=== PATIENT | female | born 1945 | race Caucasian/White ===

== ENCOUNTER 2020-12-19 09:51 | Emergency (ER) | payer MEDICARE, OTHER ==
[~2020-12-19] VITALS: Ht 160 cm; Wt 71.2 kg
[2020-12-19] MEDS ORDERED: LASIX20 MG PO (10:28)
[2020-12-19 10:30] LABS: BASOPHIL 1.1 % (0-2); EOSINOPHIL 12.9 % (0-7); HCT 37.1 % (37.0-47.0); HGB 11.7 g/dl (12.5-16.0); LYMPHOCYTE 25.1 % (15-48); MCH 29.4 pg (25.0-31.0); MCHC 31.5 g/dL (32.0-36.0); MCV 93.2 fL (78.0-100.0); MONOCYTE 8.5 % (0-12); MPV 10.5 fL (6.0-9.5); NEUTROPHIL 52.1 % (41-80); NRBC 0; PLT 327 K/uL (150-400); RBC 3.98 M/uL (4.20-5.40); RDW 12.7 % (11.5-14.0); WBC 6.6 K/uL (4.0-10.5)
[2020-12-19 10:47] LABS: INR 0.99 (0.9-1.2); PROTHROMBIN TIME 12.5 SECONDS (11.8-13.4); PTT 33.2 SECONDS (24.4-34.7)
[2020-12-19 10:53] LABS: BILIRUBIN NEGATIVE (NEGATIVE); BLOOD NEGATIVE Ery/uL (NEGATIVE); CLARITY CLEAR (CLEAR); COLOR YELLOW (YELLOW); GLUCOSE (U) NORMAL (NORMAL); LEUKOCYTES 1+ Leu/uL (NEGATIVE); NITRITE NEGATIVE (NEGATIVE); PROTEIN NEGATIVE (NEGATIVE); SPECIFIC GRAVITY 1.025 (1.001-1.030); UROBILINOGEN 0.2 mg/dL (0.2-1.0)
[2020-12-19 10:58] LABS: ALBUMIN 3.2 g/dL (3.4-5.0); BILIRUBIN - TOTAL 0.1 mg/dL (0.2-1.0); BUN/CREAT RATIO (CALC) 21.6 RATIO; CREATININE 1.02 mg/dL (0.51-0.95); GLOBULIN (CALCULATION) 3.9 g/dL; POTASSIUM 4.4 mmol/L (3.5-5.1); TOTAL PROTEIN 7.1 g/dL (6.4-8.2)
[2020-12-19 11:03] LABS: PRO-BNP 300 pg/mL (<125)
[2020-12-19 11:03] LABS: BACTERIA 3+; MUCOUS TRACE; URINARY RBC RARE
[2020-12-19] MEDS ORDERED: KLOR-CON M20 T20 MEQ PO (12:41)
[2020-12-19] MEDS ORDERED: LASIX40 MG PO (12:41)
[2020-12-19] MEDS ORDERED: COMPRESSION TH1 EACH XX (12:42)
== END 2020-12-19 13:44 | disposition home or self-care (01) ==
LOC: FER 09:51
PROVIDERS: Emergency Medicine
DX: I11.0 Hypertensive heart disease with heart failure (principal); I50.9 Heart failure, unspecified; M79.89 Other specified soft tissue disorders; I25.2 Old myocardial infarction
CPT/HCPCS: 36415; 71045; 80053; 81001; 83880; 84484; 85025; 85610; 85730; 93005; J1940

== ENCOUNTER 2021-08-19 09:38 | Inpatient (IN) | payer MEDICARE, OTHER ==
[~2021-08-19] VITALS: Ht 160 cm; Wt 81.0 kg
[~2021-08-19 09:38] MED LIST: COMPRESSION TH1 EACH XX; KLOR-CON M20 T20 MEQ PO; LASIX20 MG PO; LASIX40 MG PO
[2021-08-19 11:12] LABS: BASOPHIL 0.6 % (0-2); EOSINOPHIL 1.9 % (0-7); HCT 38.7 % (37.0-47.0); HGB 12.3 g/dl (12.5-16.0); LYMPHOCYTE 7.4 % (15-48); MCH 29.2 pg (25.0-31.0); MCHC 31.8 g/dL (32.0-36.0); MCV 91.9 fL (78.0-100.0); MPV 10.6 fL (6.0-9.5); NEUTROPHIL 83.7 % (41-80); NRBC 0; PLT 351 K/uL (150-400); RBC 4.21 M/uL (4.20-5.40); WBC 11.2 K/uL (4.0-10.5)
[2021-08-19 11:37] LABS: BILIRUBIN NEGATIVE (NEGATIVE); BLOOD TRACE-INTACT Ery/uL (NEGATIVE); CLARITY CLEAR (CLEAR); COLOR YELLOW (YELLOW); GLUCOSE (U) NORMAL (NORMAL); LEUKOCYTES NEGATIVE Leu/uL (NEGATIVE); NITRITE NEGATIVE (NEGATIVE); PROTEIN TRACE (LOW) mg/dL (NEGATIVE); UROBILINOGEN 0.2 mg/dL (0.2-1.0)
[2021-08-19 11:50] LABS: BACTERIA TRACE; MUCOUS TRACE
[2021-08-19 12:08] LABS: ALBUMIN 3.8 g/dL (3.4-5.0); BILIRUBIN - TOTAL 0.5 mg/dL (0.2-1.0); BUN/CREAT RATIO (CALC) 26.5 RATIO; CREATININE 1.47 mg/dL (0.51-0.95); GLOBULIN (CALCULATION) 3.1 g/dL; POTASSIUM 4.9 mmol/L (3.5-5.1); TOTAL PROTEIN 6.9 g/dL (6.4-8.2)
[2021-08-19] MEDS ORDERED: UROCIT-K10 MEQ PO (16:14)
[2021-08-19] MEDS ORDERED: LIPITOR40 MG PO (16:14)
[2021-08-19] MEDS ORDERED: LASIX40 MG PO (16:14)
[2021-08-19] MEDS ORDERED: NAMZARIC 21 MG1 EACH PO (16:15)
[2021-08-19] MEDS ORDERED: TRELEGY ELLIPT1 EACH PO (16:16)
[2021-08-19] MEDS ORDERED: SYNTHROID125 MCG PO (16:18)
[2021-08-19] MEDS ORDERED: ZOLOFT100 MG PO (16:18)
[2021-08-19] MEDS ORDERED: PLAVIX75 MG PO (16:18)
[2021-08-19] MEDS ORDERED: DIOVAN80 MG PO (16:19)
[2021-08-19] MEDS ORDERED: ASPIRIN EC81 MG PO (16:19)
[2021-08-19] MEDS ORDERED: MULTI-VITAMIN1 EACH PO (16:20)
[2021-08-20 06:34] LABS: EOSINOPHIL 10.7 % (0-7); HCT 33.6 % (37.0-47.0); HGB 10.5 g/dl (12.5-16.0); LYMPHOCYTE 17.3 % (15-48); MCH 29.2 pg (25.0-31.0); MCHC 31.3 g/dL (32.0-36.0); MCV 93.6 fL (78.0-100.0); MONOCYTE 8.9 % (0-12); MPV 10.8 fL (6.0-9.5); NEUTROPHIL 61.9 % (41-80); NRBC 0; PLT 291 K/uL (150-400); RBC 3.59 M/uL (4.20-5.40); RDW 13.2 % (11.5-14.0); WBC 8.1 K/uL (4.0-10.5)
[2021-08-20 07:16] LABS: ALBUMIN 2.9 g/dL (3.4-5.0); BILIRUBIN - TOTAL 0.4 mg/dL (0.2-1.0); BUN/CREAT RATIO (CALC) 19.6 RATIO; CREATININE 1.43 mg/dL (0.51-0.95); GLOBULIN (CALCULATION) 3.1 g/dL; POTASSIUM 3.8 mmol/L (3.5-5.1)
--- NOTE | 2021-08-20 16:36 | NUR ---
08/20 AN assessment was conducted with Jaylon Dorman, son / PONed, [phone]. Ms. Dorman lives alone. She has a band sewer 3 days per week for 3 hours each day. Her children visit the home on the alternate days. They children manage medications, prepare meals and care for the home. - Ms. Dorman has an emergency alert system. - The family is considering [facility] vs home with HH. They have a meeting at [facility] on 08/21 at 1:00. Discharge is anticipated for 08/21. A referral packet was sent to [facility] and Jones Serrato will assess patient at bedside this evening. - As agreed upon with Mr. Jaylon Dorman, the alternate plan will be for Mr. Dorman to return home with [facility].
[2021-08-21 04:19] LABS: BASOPHIL 0.6 % (0-2); EOSINOPHIL 1.8 % (0-7); HCT 32.2 % (37.0-47.0); HGB 10.2 g/dl (12.5-16.0); LYMPHOCYTE 12.9 % (15-48); MCH 29.4 pg (25.0-31.0); MCHC 31.7 g/dL (32.0-36.0); MCV 92.8 fL (78.0-100.0); MONOCYTE 9.9 % (0-12); MPV 10.9 fL (6.0-9.5); NEUTROPHIL 74.3 % (41-80); NRBC 0; PLT 285 K/uL (150-400); RBC 3.47 M/uL (4.20-5.40); RDW 13.2 % (11.5-14.0); WBC 10.2 K/uL (4.0-10.5)
[2021-08-21 04:46] LABS: BUN/CREAT RATIO (CALC) 14.2 RATIO; CREATININE 1.13 mg/dL (0.51-0.95); POTASSIUM 3.7 mmol/L (3.5-5.1)
--- NOTE | 2021-08-21 10:43 | NUR ---
08/21/21 A referral has been made to [facility]. Jaylon Dorman, son, will notified [facility] re: discharge to home or [facility].
[2021-08-22 22:22] LABS: BUN/CREAT RATIO (CALC) 14.7 RATIO; CREATININE 0.95 mg/dL (0.51-0.95); MAGNESIUM 1.9 mg/dL (1.8-2.4)
[2021-08-23 07:03] LABS: BUN/CREAT RATIO (CALC) 10.9 RATIO; CREATININE 0.92 mg/dL (0.51-0.95); POTASSIUM 3.8 mmol/L (3.5-5.1)
[2021-08-24 07:35] LABS: BASOPHIL 1.1 % (0-2); HCT 29.9 % (37.0-47.0); HGB 9.3 g/dl (12.5-16.0); LYMPHOCYTE 21.1 % (15-48); MCH 29.2 pg (25.0-31.0); MCHC 31.1 g/dL (32.0-36.0); MONOCYTE 10.4 % (0-12); MPV 10.7 fL (6.0-9.5); NEUTROPHIL 57.1 % (41-80); NRBC 0; PLT 319 K/uL (150-400); RBC 3.18 M/uL (4.20-5.40); RDW 13.1 % (11.5-14.0); WBC 7.3 K/uL (4.0-10.5)
[2021-08-24 07:50] LABS: INR 1.13 (0.9-1.2); PROTHROMBIN TIME 14.2 SECONDS (11.9-13.9)
[2021-08-24 08:09] LABS: CREATININE 0.9 mg/dL (0.51-0.95); POTASSIUM 3.8 mmol/L (3.5-5.1)
--- NOTE | 2021-08-24 19:42 | NUR ---
O2 SAT 88 ON R/A O2@1L ADDED SAT 92%.
--- NOTE | 2021-08-24 23:19 | NUR ---
2229 PATIENT HAD REMOVED HER CAST/SPLINT TO HER LEFT ARM AND WAS AMBULATING IN HALLWAY LOOKING FOR BATHROOM. PATIENT REDIRECTED TO HER ROOM, ASSISTANCE PROVIDED, WRAP REAPPLIED TO LEFT ARM. RE-ORIENTED OLLIE WAS SOUNDING BUT ABLE TO HEAR FROM NURSING STATION.
[2021-08-25 07:17] LABS: BASOPHIL 1.1 % (0-2); EOSINOPHIL 9.5 % (0-7); HCT 29.8 % (37.0-47.0); HGB 9.3 g/dl (12.5-16.0); LYMPHOCYTE 23.1 % (15-48); MCH 29.1 pg (25.0-31.0); MCHC 31.2 g/dL (32.0-36.0); MCV 93.1 fL (78.0-100.0); MONOCYTE 9.2 % (0-12); MPV 10.3 fL (6.0-9.5); NEUTROPHIL 56.8 % (41-80); NRBC 0; PLT 309 K/uL (150-400); WBC 7.2 K/uL (4.0-10.5)
[2021-08-25 07:51] LABS: ALBUMIN 2.4 g/dL (3.4-5.0); BILIRUBIN - TOTAL 0.3 mg/dL (0.2-1.0); BUN/CREAT RATIO (CALC) 10.2 RATIO; CREATININE 0.88 mg/dL (0.51-0.95); GLOBULIN (CALCULATION) 2.9 g/dL; POTASSIUM 4.2 mmol/L (3.5-5.1); TOTAL PROTEIN 5.3 g/dL (6.4-8.2)
[2021-08-26] MEDS ORDERED: SACCHAROMYCES250 MG PO (08:34)
[2021-08-26] MEDS ORDERED: TRAMADOL HCL50 MG PO ×2 (08:34→14:22)
--- NOTE | 2021-08-26 14:39 | NUR ---
08/26/21 Family has requested SNF placement; preferences are [facility] and [facility]. [facility] has offered a bed. Ms. Dorman requires 02. Jaylon Dorman, POA/son, reports Ms. Dorman to have 02 at home which she was not using. He will use the 02 for transport. - Please call report to: [phone] and fax DS to: [phone].
== END 2021-08-26 18:00 | DRG 682 ==
LOC: FER 09:38 → FMS 12:08 → FTCU 12:08 → FMS 08-22 08:23
PROVIDERS: Allergy & Immunology Allergy; Emergency Medicine; Nurse Practitioner; Orthopaedic Surgery; ADMIT Family Medicine
PROC: 0PSJXZZ Reposition Left Radius, External Approach (ICD-10-PCS; principal; 2021-08-25 12:45)
DX: N17.9 Acute kidney failure, unspecified (principal); J18.9 Pneumonia, unspecified organism; S52.572A Other intraarticular fracture of lower end of left radius, initial encounter for closed fracture; M62.82 Rhabdomyolysis; Z66 Do not resuscitate; J44.9 Chronic obstructive pulmonary disease, unspecified; E03.9 Hypothyroidism, unspecified; K21.9 Gastro-esophageal reflux disease without esophagitis; I12.9 Hypertensive chronic kidney disease with stage 1 through stage 4 chronic kidney disease, or unspecified chronic kidney disease; N18.9 Chronic kidney disease, unspecified; F03.90 Unspecified dementia, unspecified severity, without behavioral disturbance, psychotic disturbance, mood disturbance, and anxiety; W19.XXXA Unspecified fall, initial encounter; Z20.822 Contact with and (suspected) exposure to COVID-19; I25.10 Atherosclerotic heart disease of native coronary artery without angina pectoris; E78.5 Hyperlipidemia, unspecified; Y92.009 Unspecified place in unspecified non-institutional (private) residence as the place of occurrence of the external cause; Z98.61 Coronary angioplasty status; Z82.49 Family history of ischemic heart disease and other diseases of the circulatory system; Z87.891 Personal history of nicotine dependence; Z79.899 Other long term (current) drug therapy
CPT/HCPCS: 36415; 70450; 71045; 71250; 73030; 73100; 73110; 73560; 76000; 80048; 80053; 81001; 82550; 82553; 83735; 83874; 84145; 84484; 85025; 85610; 87040; 87088; 93005; 94010; 94640; 96365; 97110; 97116; 97162; 97165; 97166; 97530; 97530-GP; 97535; J2250; J2543; J7030; J7120; U0002